=== PATIENT | female | born 1945 | race Caucasian/White ===

== ENCOUNTER 2020-06-19 13:15 | Outpatient (REF) | payer MEDICARE, OTHER, SELFPAY ==
--- NOTE | 2020-06-19 | MM_ITS ---
EXAMINATION: BONE DENSITOMETRY CLINICAL INDICATION: Age-related osteoporosis without current pathological fracture. COMPARISON: Previous BD dated 09/02/2009 and baseline BD dated 04/11/2007. TECHNIQUE: Using a InVisM DXA system (software version: 14.10) manufactured by [employer], dual-energy x-ray absorptiometry was performed of the lumbar spine and left hip. The images are of good technical quality. Summary results are attached. FINDINGS: AP SPINE L1-L4: Current: BMD 0.925 g/cm2, Z-score -1.1, T-score -2.1, osteopenia, 7.6% decrease from previous, 3.9% decrease from baseline (<5% change is not significant). Prior: BMD 1.001 g/cm2. Baseline: BMD 0.963 g/cm2. LEFT FEMUR, NECK: Current: BMD 0.923 g/cm2, Z-score 0.6, T-score -0.8, normal. Prior: BMD 0.962 g/cm2. Baseline: BMD 0.999 g/cm2. LEFT FEMUR, TOTAL: Current: BMD 0.965 g/cm2, Z-score 0.8, T-score -0.3, normal, 5.9% decrease from previous, 8.2% decrease from baseline (<5% change is not significant). Prior: BMD 1.026 g/cm2. Baseline: BMD 1.051 g/cm2. IDENTIFIED RISK FACTORS: Osteoporosis. Height loss. Secondary osteoporosis (early menopause). Hysterectomy. Bilateral oophorectomy. HISTORY OF FRACTURE: None listed. MEDICATIONS: Calcium supplement and/or multivitamin. Vitamin D. IMPRESSION: 1. DIAGNOSIS: Osteopenia based on the lowest T-score value of -2.1 in the lumbar spine applying World Health Organization criteria. 2. 10-YEAR FRACTURE RISK PREDICTION, FRAX: Major osteoporotic fracture (clinical spine, forearm, hip or shoulder) 4.6%. Hip fracture 0.5%. 3. Treatment Recommendations: NOF guidelines recommend consideration for treatment in postmenopausal women and men age 50 and older presenting with the following: -A hip or vertebral (clinical or morphometric) fracture. -T-score less than or equal to -2.5 at the femoral neck or spine after appropriate evaluation to exclude secondary causes. -Low bone mass at the hip or spine and a 10-year fracture probability by FRAX of greater than or equal to 3% for hip fracture or greater than or equal to 20% for major osteoporotic fracture based on the [place] adapted WHO algorithm. 4. Other Recommendations: All treatment decisions require clinical judgment and consideration of individual patient factors, including patient preferences, comorbidities, previous drug use, risk factors not captured in the FRAX model (e.g. frailty, falls, vitamin D deficiency, increased bone turnover, interval significant decline in bone density) and possible under or overestimation of fracture risk by FRAX. Additional medical evaluation for secondary cause of low bone mineral density may be appropriate. FUTURE SCAN RECOMMENDATION: People with diagnosed cases of osteoporosis or at high risk for fracture should have regular bone mineral density tests. For patients eligible for Medicare, routine testing is allowed once every 2 years. The testing frequency can be increased to one year for patients who have rapidly progressing disease, those who are receiving or discontinuing medical therapy to restore bone mass, or have additional risk factors.
== END 2020-06-19 13:16 | disposition home or self-care (01) ==
LOC: HO.MAMMO 13:15
PROVIDERS: PCP Internal Medicine; Visit Provider Internal Medicine
DX: Z13.820 Encounter for screening for osteoporosis (principal); M81.0 Age-related osteoporosis without current pathological fracture; Z78.0 Asymptomatic menopausal state; Z98.890 Other specified postprocedural states; Z79.899 Other long term (current) drug therapy
CPT/HCPCS: 77080

== ENCOUNTER 2020-06-20 14:25 | Outpatient (REF) | payer MEDICARE, OTHER, SELFPAY ==
--- NOTE | 2020-06-20 14:34 | US_ITS ---
EXAMINATION: US DIAGNOSTIC ULTRASOUND BREAST, LEFT CLINICAL INFORMATION: Pain and swelling for years. COMPARISON: Mammography of same day and studies dating back to March 12, 2014. TECHNIQUE: Ultrasound of the breast is performed with real-time pollard scale imaging and color Doppler. FINDINGS: Targeted left breast ultrasound did not demonstrate any abnormal cystic or solid mass. No region of abnormal distal sound shadowing appreciated. Results are discussed with the patient at time of visit. IMPRESSION: No mammographic or ultrasound findings to suggest malignancy. ASSESSMENT: BI-RADS 1: Negative RECOMMENDATION: Routine 12. Clinical follow-up for palpable abnormality/pain
--- NOTE | 2020-06-20 14:34 | MM_ITS ---
EXAMINATION: MM DIAGNOSTIC DIGITAL TOMOSYNTHESIS, BILATERAL US TARGETED DIAGNOSTIC BREAST, LEFT CLINICAL INFORMATION: Left breast thickening in the axilla with pain. Question left breast mass 2:00 position. The lifetime risk of breast cancer based on the Tyrer-Cuzick Model is 3.6%. COMPARISON: Mammography: 07/25/2019 and studies dating back to October 2010. TECHNIQUE: Digital breast tomosynthesis is performed in both the craniocaudal and mediolateral oblique views along with computer-aided detection (CAD). Synthesized 2D images are generated from the tomosynthesis. FINDINGS: There are scattered areas of fibroglandular density (ACR BI-RADS breast composition category B). There are no significant masses, abnormal calcifications, or other abnormalities. Targeted left breast ultrasound did not demonstrate any abnormal cystic or solid mass. No region of abnormal distal sound shadowing appreciated. Results are discussed with the patient at time of visit. IMPRESSION: No mammographic or ultrasound findings to suggest malignancy. ASSESSMENT: BI-RADS 1: Negative RECOMMENDATION: Routine 12. Clinical follow up for palpable abnormality/pain. This patient's information was entered into a reminder system with a target due date for their next mammogram.
[2020-06-20 18:12] LABS: MANUAL DIFF FLAG NO
[2020-06-20 18:22] LABS: Basophils Percent Auto 0.3 % (0-2); Eosinophils Percent Auto 0.4 % (0-4); Hematocrit 40.9 % (37-47); Imm Gran Abs Auto 0.01 X10*3/uL (0.00-0.03); Imm Gran Pct Auto 0.1 % (0.0-0.4); Lymphocytes Absolute Auto 4.4 X10*3/uL (1.2-4.9); Lymphocytes Percent Auto 48.2 % (20-40); Mean Corpuscular HGB Conc 34.2 g/dl (31.0-35.0); Mean Corpuscular Hemoglobin 31.3 pg (27.0-33.0); Mean Corpuscular Volume 91.5 fL (80-98); Mean Platelet Volume 11.1 fL (9.4-12.3); Monocytes Absolute Auto 0.8 X10*3/uL (0.1-1.2); Monocytes Percent Auto 8.4 % (2-11); Neutrophils Absolute Auto 3.8 X10*3/uL (2.0-8.3); Neutrophils Percent Auto 42.6 % (45-73); Platelet Count 308 X10*3/uL (160-400); Red Blood Count 4.47 X10*6/uL (4.20-5.50); Red Cell Distribution Width 13.2 % (11.0-16.0)
[2020-06-20 18:28] LABS: Estimated Average Glucose 120 mg/dL; Hemoglobin A1c % 5.8 %
[2020-06-20 18:39] LABS: Alanine Aminotransferase 17 U/L (0-31); Albumin Level 4.8 g/dL (3.5-5.0); Alkaline Phosphatase 85 U/L (39-117); Anion Gap 13 (12-20); Aspartate Amino Transferase 21 U/L (5-31); Bilirubin Total 0.9 mg/dL (0.0-1.0); Blood Urea Nitrogen 10 mg/dL (9-16); Calcium 9.9 mg/dL (8.4-10.2); Carbon Dioxide 28 mmol/L (22-29); Chloride 101 mmol/L (96-108); Cholesterol 148 mg/dL; Estimated Glomerular Filt Rate > 60; Glucose Random 88 mg/dL (60-115); HDL Cholesterol 62 mg/dL; LDL Cholesterol Calculated 57 mg/dl; Potassium 4.6 mmol/l (3.3-5.1); Sodium 137 mmol/L (135-145); Total Protein 7.7 g/dL (6.5-8.0); Triglycerides 145 mg/dL
[2020-06-20 19:00] LABS: Thyroid Stimulating Hormone 1.44 mIU/mL (0.32-4.0)
== END 2020-06-20 14:26 | disposition home or self-care (01) ==
LOC: HO.MAMMO 14:25
PROVIDERS: PCP Internal Medicine; Visit Provider Internal Medicine
DX: E66.01 Morbid (severe) obesity due to excess calories (principal); F33.9 Major depressive disorder, recurrent, unspecified; M79.673 Pain in unspecified foot; R73.01 Impaired fasting glucose; N63.21 Unspecified lump in the left breast, upper outer quadrant
CPT/HCPCS: 36415; 76642; 77062; 77066; 80053; 80061; 83036; 84443; 85025

== ENCOUNTER 2021-04-07 09:22 | Outpatient (REF) | payer MEDICARE, OTHER, SELFPAY ==
[2021-04-07 11:17] LABS: Alanine Aminotransferase 13 U/L (0-31); Albumin Level 4.8 g/dL (3.5-5.0); Alkaline Phosphatase 89 U/L (39-117); Anion Gap 16 (12-20); Aspartate Amino Transferase 19 U/L (5-31); Bilirubin Total 0.9 mg/dL (0.0-1.0); Blood Urea Nitrogen 9 mg/dL (9-16); Carbon Dioxide 25 mmol/L (22-29); Chloride 104 mmol/L (96-108); Cholesterol 238 mg/dL; Estimated Glomerular Filt Rate > 60; Glucose Random 116 mg/dL (60-115); HDL Cholesterol 60 mg/dL; LDL Cholesterol Calculated 152 mg/dl; Potassium 4.8 mmol/L (3.3-5.1); Sodium 140 mmol/L (135-145); Total Protein 7.7 g/dL (6.5-8.0); Triglycerides 134 mg/dL
== END 2021-04-07 09:23 | disposition home or self-care (01) ==
LOC: HO.LAB 09:22
PROVIDERS: PCP Internal Medicine; Visit Provider Internal Medicine
DX: E78.00 Pure hypercholesterolemia, unspecified (principal); K85.90 Acute pancreatitis without necrosis or infection, unspecified
CPT/HCPCS: 36415; 80053; 80061

== ENCOUNTER → 2021-05-05 09:54 | Outpatient (BNVA) | payer MEDICARE, OTHER, SELFPAY | PROVIDERS: PCP Internal Medicine; Referring Provider Internal Medicine; Visit Provider Surgery Vascular Surgery | DX: I83.11 Varicose veins of right lower extremity with inflammation (principal) | CPT/HCPCS: 99202 ==

== ENCOUNTER → 2021-05-06 20:09 | Outpatient (REF) | payer MEDICARE, OTHER, SELFPAY | LOC: HO.SL 20:09 | PROVIDERS: Visit Provider Internal Medicine | DX: G47.33 Obstructive sleep apnea (adult) (pediatric) (principal); G47.51 Confusional arousals | CPT/HCPCS: 95810 ==

== ENCOUNTER 2021-05-19 10:22 | Outpatient (REF) | payer MEDICARE, OTHER, SELFPAY ==
--- NOTE | ~2021-05-19 | US_ITS ---
EXAMINATION: US LOWER EXTREMITY VENOUS ULTRASOUND (REFLUX EXAM), BILATERAL CLINICAL INDICATION: Lower extremity varicose veins. COMPARISON: 07/05/2018 TECHNIQUE: Color-flow triplex imaging and compression Doppler was performed to evaluate both the deep and the superficial systems bilaterally. To evaluate the superficial system, the examination was performed in the upright position. Color-flow Doppler ultrasound and compression ultrasound were utilized. In addition, maneuvers were utilized to demonstrate reflux. FINDINGS: 1. DEEP VENOUS ULTRASOUND OF THE RIGHT LOWER EXTREMITY: Common Femoral Vein: Compressible, normal respiratory variation and augmented flow. Femoral Vein: Compressible, normal color-flow and augmentation. Popliteal Vein: Compressible, normal augmentation. Deep Reflux: There is 0.8 seconds of reflux within the common femoral vein. There is no evidence of a Richardson's cyst. 2. SUPERFICIAL ULTRASOUND WITH DOPPLER OF RIGHT LOWER EXTREMITY: GREAT SAPHENOUS VEIN: The right great saphenous vein ranges in size from 0.2 cm to 0.8 cm at the junction. There is segmental reflux below the level of the knee measuring up to 3.3 seconds. DUPLICATED GREAT SAPHENOUS VEIN: Medial, 0.4 cm at the junction, no reflux. SMALL SAPHENOUS VEIN: Saphenopopliteal junction: 0.3 cm; No evidence of reflux. Mid calf: 0.2 cm; No evidence of reflux. Distal calf: 0.2 cm; No evidence of reflux. VEIN OF GIACOMINI: None Imaged. PERFORATORS: Proximal calf, 0.1 cm, no reflux. VARICOSITIES: No varicosities greater than 3 mm identified. 3. DEEP VENOUS ULTRASOUND OF THE LEFT LOWER EXTREMITY: Common Femoral Vein: Compressible, normal respiratory variation and augmented flow. Femoral Vein: Compressible, normal color-flow and augmentation. Popliteal Vein: Compressible, normal augmentation. Deep Reflux: There is no evidence of reflux in the deep system in either the common femoral vein or the popliteal vein. There is no evidence of a Richardson's cyst. 4. SUPERFICIAL ULTRASOUND WITH DOPPLER OF LEFT LOWER EXTREMITY: GREAT SAPHENOUS VEIN: The great saphenous vein ranges in size from 0.2 cm to 0.8 cm at the junction. There is no evidence of reflux within the left great saphenous vein. DUPLICATED GREAT SAPHENOUS VEIN: Lateral, 0.3 cm, no reflux. SMALL SAPHENOUS VEIN: Saphenopopliteal junction: 0.2 cm; No evidence of reflux. Mid calf: 0.2 cm; No evidence of reflux. VEIN OF GIACOMINI: None Imaged. PERFORATORS: None Imaged. VARICOSITIES: No varicosities greater than 3 cm are identified. US/US venous duplex LE BI IMPRESSION: 1. Segmental reflux within the right great saphenous vein below the knee. 2. No evidence of left great saphenous venous insufficiency. 3. Deep venous insufficiency involving the right common femoral vein. 4. No evidence of DVT.
== END 2021-05-19 10:23 | disposition home or self-care (01) ==
LOC: HO.US 10:22
PROVIDERS: PCP Internal Medicine; Visit Provider Surgery Vascular Surgery
DX: I83.893 Varicose veins of bilateral lower extremities with other complications (principal)
CPT/HCPCS: 93970

== ENCOUNTER → 2021-06-04 13:48 | Outpatient (BNVA) | payer MEDICARE, OTHER, SELFPAY | PROVIDERS: PCP Internal Medicine; Visit Provider Surgery Vascular Surgery | DX: I83.11 Varicose veins of right lower extremity with inflammation (principal) | CPT/HCPCS: 99212 ==

== ENCOUNTER 2021-06-04 14:13 | Outpatient (REF) | payer MEDICARE, OTHER, SELFPAY | END 2021-06-04 14:14 | disposition home or self-care (01) | LOC: HO.MAMMO 14:13 | PROVIDERS: Visit Provider Internal Medicine | DX: Z13.89 Encounter for screening for other disorder (principal) ==

== ENCOUNTER 2021-06-11 09:22 | Outpatient (REF) | payer MEDICARE, OTHER, SELFPAY ==
[2021-06-11 09:44] LABS: MANUAL DIFF FLAG NO
[2021-06-11 10:31] LABS: Basophils Percent Auto 0.4 % (0-2); Eosinophils Percent Auto 0.5 % (0-4); Hematocrit 39.3 % (37-47); Hemoglobin 13.5 g/dl (12.0-16.0); Imm Gran Abs Auto 0.02 X10*3/uL (0.00-0.03); Imm Gran Pct Auto 0.3 % (0.0-0.4); Lymphocytes Absolute Auto 2.6 X10*3/uL (1.2-4.9); Lymphocytes Percent Auto 33.8 % (20-40); Mean Corpuscular HGB Conc 34.4 g/dl (31.0-35.0); Mean Corpuscular Hemoglobin 31.4 pg (27.0-33.0); Mean Corpuscular Volume 91.4 fL (80-98); Mean Platelet Volume 10.2 fL (9.4-12.3); Monocytes Absolute Auto 0.6 X10*3/uL (0.1-1.2); Monocytes Percent Auto 8.2 % (2-11); Neutrophils Absolute Auto 4.4 X10*3/uL (2.0-8.3); Neutrophils Percent Auto 56.8 % (45-73); Platelet Count 313 X10*3/uL (160-400); Red Cell Distribution Width 13.1 % (11.0-16.0); White Blood Count 7.8 X10*3/uL (4.8-10.8)
[2021-06-11 10:57] LABS: Alanine Aminotransferase 16 U/L (0-31); Albumin Level 4.9 g/dL (3.5-5.0); Alkaline Phosphatase 80 U/L (39-117); Anion Gap 13 (12-20); Aspartate Amino Transferase 19 U/L (5-31); Blood Urea Nitrogen 13 mg/dL (9-16); Calcium 10.3 mg/dL (8.4-10.2); Carbon Dioxide 27 mmol/L (22-29); Chloride 104 mmol/L (96-108); Cholesterol 197 mg/dL; Estimated Glomerular Filt Rate > 60; Glucose Fasting 107 mg/dL (60-99); HDL Cholesterol 68 mg/dL; LDL Cholesterol Calculated 108 mg/dl; Potassium 4.5 mmol/L (3.3-5.1); Sodium 139 mmol/L (135-145); Total Protein 7.8 g/dL (6.5-8.0); Triglycerides 108 mg/dL
[2021-06-11 11:19] LABS: Thyroid Stimulating Hormone 1.97 uIU/mL (0.32-4.0)
== END 2021-06-11 09:23 | disposition home or self-care (01) ==
LOC: HO.LAB 09:22
PROVIDERS: PCP Internal Medicine; Visit Provider Internal Medicine
DX: E78.00 Pure hypercholesterolemia, unspecified (principal); F41.0 Panic disorder [episodic paroxysmal anxiety]; G47.33 Obstructive sleep apnea (adult) (pediatric); I10 Essential (primary) hypertension
CPT/HCPCS: 36415; 80053; 80061; 84443; 85025

== ENCOUNTER 2021-07-21 14:23 | Outpatient (REF) | payer MEDICARE, OTHER, SELFPAY ==
--- NOTE | ~2021-07-21 | MM_ITS ---
EXAMINATION: MM SCREENING DIGITAL BREAST TOMOSYNTHESIS, BILATERAL CLINICAL INFORMATION: Screening. Asymptomatic. The lifetime risk of breast cancer based on the Tyrer-Cuzick Model is 4%. COMPARISON: Mammography: 06/20/2020, 07/25/2019, 07/13/2018 TECHNIQUE: Digital breast tomosynthesis is performed in both the craniocaudal and mediolateral oblique views along with computer-aided detection (CAD). Synthesized 2D images are generated from the tomosynthesis. FINDINGS: There are scattered areas of fibroglandular density (ACR BI-RADS breast composition Category b). Breast tissue composition is similar to prior studies. There is no developing density. No significant mass or architectural abnormality. The axilla and skin contours are unremarkable. There are scattered bilateral round and rim calcifications. No significant changes. MM/MM tomosynthesis screening BI IMPRESSION: No mammographic evidence of malignancy. ASSESSMENT: BI-RADS 1: Negative RECOMMENDATION: Routine annual mammography screening. This patient's information was entered into a reminder system with a target due date for their next mammogram.
== END 2021-07-21 14:24 | disposition home or self-care (01) ==
LOC: HO.MAMMO 14:23
PROVIDERS: Visit Provider Internal Medicine
DX: Z12.31 Encounter for screening mammogram for malignant neoplasm of breast (principal)
CPT/HCPCS: 77063; 77067

== ENCOUNTER 2021-11-06 10:37 | Outpatient (REF) | payer MEDICARE, OTHER, SELFPAY | END 2021-11-06 10:38 | disposition home or self-care (01) | LOC: HO.HOSX 10:37 | PROVIDERS: Visit Provider Physician Assistant | DX: Z13.89 Encounter for screening for other disorder (principal) ==

== ENCOUNTER 2022-07-26 09:03 | Outpatient (REF) | payer MEDICARE, OTHER, SELFPAY ==
[2022-07-26 09:24] LABS: MANUAL DIFF FLAG NO
[2022-07-26 09:43] LABS: Basophils Percent Auto 0.4 % (0-2); Eosinophils Absolute Auto 0.1 X10*3/uL (0.0-0.4); Hematocrit 39.5 % (37.0-47.0); Hemoglobin 13.3 g/dl (12.0-16.0); Imm Gran Abs Auto 0.01 X10*3/uL (0.00-0.03); Imm Gran Pct Auto 0.1 % (0.0-0.4); Lymphocytes Percent Auto 44.4 % (20-40); Mean Corpuscular HGB Conc 33.7 g/dl (31.0-35.0); Mean Corpuscular Hemoglobin 30.9 pg (27.0-33.0); Mean Corpuscular Volume 91.9 fL (80.0-98.0); Monocytes Absolute Auto 0.7 X10*3/uL (0.1-1.2); Neutrophils Absolute Auto 2.9 x10*3/uL (2.0-8.3); Neutrophils Percent Auto 43.1 % (45-73); Platelet Count 311 X10*3/uL (160-400); Red Cell Distribution Width 13.5 % (11.0-16.0); White Blood Count 6.7 X10*3/uL (4.8-10.8)
[2022-07-26 09:54] LABS: Estimated Average Glucose 120 mg/dL; Hemoglobin A1c % 5.8 %
[2022-07-26 10:11] LABS: Alanine Aminotransferase 22 U/L (0-31); Albumin Level 4.8 g/dL (3.5-5.0); Alkaline Phosphatase 75 U/L (39-117); Anion Gap 14 (12-20); Aspartate Amino Transferase 21 U/L (5-31); Blood Urea Nitrogen 14 mg/dL (9-16); Carbon Dioxide 29 mmol/L (22-29); Chloride 102 mmol/L (96-108); Cholesterol 187 mg/dL; Estimated Glomerular Filt Rate > 60; Glucose Random 115 mg/dL (60-115); HDL Cholesterol 72 mg/dL; LDL Cholesterol Calculated 96 mg/dl; Sodium 140 mmol/L (135-145); Total Protein 7.7 g/dL (6.5-8.0); Triglycerides 99 mg/dL
[2022-07-26 10:33] LABS: Thyroid Stimulating Hormone 2.52 uIU/mL (0.32-4.0)
== END 2022-07-26 09:04 | disposition home or self-care (01) ==
LOC: HO.LAB 09:03
PROVIDERS: PCP Internal Medicine; Visit Provider Internal Medicine
DX: I10 Essential (primary) hypertension (principal); M51.16 Intervertebral disc disorders with radiculopathy, lumbar region; R73.01 Impaired fasting glucose
CPT/HCPCS: 36415; 80053; 80061; 83036; 84443; 85025

== ENCOUNTER 2022-07-30 08:48 | Outpatient (REF) | payer MEDICARE, OTHER, SELFPAY ==
--- NOTE | ~2022-07-30 | MM_ITS ---
EXAMINATION: MM SCREENING DIGITAL BREAST TOMOSYNTHESIS, BILATERAL CLINICAL INFORMATION: Screening. Asymptomatic. The lifetime risk of breast cancer based on the Tyrer-Cuzick Model is 4%. COMPARISON: Mammography: 07/21/2021, 06/20/2020, 07/25/2019, 07/13/2018, 07/08/2017, 05/31/2016 TECHNIQUE: Digital breast tomosynthesis is performed in both the craniocaudal and mediolateral oblique views along with computer-aided detection (CAD). Synthesized 2D images are generated from the tomosynthesis. FINDINGS: There are scattered areas of fibroglandular density (ACR BI-RADS breast composition Category b). Parenchymal pattern is similar to prior exams. Left breast has chronic parenchymal asymmetry central 12:00 position similar to multiple prior exams. There is also small stable chronic asymmetric density mid outer right breast on CC view similar to multiple prior studies. Neither breast shows developing density or interval mass or architectural abnormality. No abnormal calcifications. The axilla and skin contours are unremarkable. MM/MM tomosynthesis screening BI IMPRESSION: No significant changes from prior exams. ASSESSMENT: BI-RADS 2: Benign RECOMMENDATION: Routine annual mammography screening. This patient's information was entered into a reminder system with a target due date for their next mammogram.
== END 2022-07-30 08:49 | disposition home or self-care (01) ==
LOC: HO.MAMMO 08:48
PROVIDERS: PCP Internal Medicine; Visit Provider Internal Medicine
DX: Z12.31 Encounter for screening mammogram for malignant neoplasm of breast (principal)
CPT/HCPCS: 77063; 77067

== ENCOUNTER 2022-10-11 14:13 | Outpatient (REF) | payer MEDICARE, OTHER, SELFPAY ==
[2022-10-11 15:21] LABS: Estimated Average Glucose 120 mg/dL; Hemoglobin A1c % 5.8 %
[2022-10-11 15:36] LABS: Alanine Aminotransferase 16 U/L (0-31); Albumin Level 4.9 g/dL (3.5-5.0); Alkaline Phosphatase 77 U/L (39-117); Anion Gap 15 (12-20); Aspartate Amino Transferase 19 U/L (5-31); Bilirubin Total 0.9 mg/dL (0.0-1.0); Blood Urea Nitrogen 15 mg/dL (9-16); Calcium 10.2 mg/dL (8.4-10.2); Carbon Dioxide 27 mmol/L (22-29); Chloride 101 mmol/L (96-108); Estimated Glomerular Filt Rate > 60; Glucose Random 92 mg/dL (60-115); Potassium 5.2 mmol/L (3.3-5.1); Sodium 138 mmol/L (135-145); Total Protein 7.7 g/dL (6.5-8.0)
== END 2022-10-11 14:14 | disposition home or self-care (01) ==
LOC: HO.LAB 14:13
PROVIDERS: PCP Internal Medicine; Visit Provider Internal Medicine
DX: Z00.00 Encounter for general adult medical examination without abnormal findings (principal); I10 Essential (primary) hypertension; E78.00 Pure hypercholesterolemia, unspecified; F32.9 Major depressive disorder, single episode, unspecified
CPT/HCPCS: 36415; 80053; 83036

== ENCOUNTER 2023-04-12 12:59 | Outpatient (AMB) | payer MEDICARE, SELFPAY ==
[2023-04-12 13:15] VITALS: BP 134/60; PULSE 62; BMI 36.8
--- NOTE | 2023-04-12 13:15 | MHC.OFFVIS ---
Intake Vital Signs 04/12/23 13:15 Height 5 ft Weight 188 lb 4.396 oz BMI 36.8 BP 134/60 Blood Pressure Location Lt brachial Position Sitting Pulse 62 Intake Visit Reasons: Colonoscopy Screening Intake Note: Lesley presents in office as a new.patient for a colonoscopy screeing PT CC: pt reports having constipation pt denies any other GI Issues Software Lead Required: No Accompanied by: Self / Same As Patient Allergies ibuprofen Allergy (Unknown, Verified 04/12/23 13:16) nausea and vomiting metformin Allergy (Unknown, Verified 04/12/23 13:16) Unknown oxycodone [From PERCOCET] Adverse Reaction (Unknown, Verified 04/12/23 13:16) HEAD FEELS DIZZY FULL ZAC inhibitors Allergy (Unknown, Uncoded 04/12/23 13:16) Unknown Codeine Phosphate Allergy (Unknown, Uncoded 04/12/23 13:16) Unknown HPI Colonoscopy Screening HPI Details 77 year old? female with past medical history of hypertension, hyperlipidemia, obesity, sleep apnea is here today for pre colonoscopy screening.? Patient was sent to us by her PCP.? ?Patient reports that her last colonoscopy was over 5 years ago in [place]. Patient denies any gastrointestinal symptoms in the past or at present.? However patient reports to have long history of constipation. Patient is taking medications, however she does not remember what the name of the medications is to have her move her bowels. Patient denies melena, hematochezia, unintentional weight loss or loss stools. Denies any personal or family history of gastrointestinal disease, colon polyps, or cancer.? Denies history of difficulty with sedation or anesthesia in the past.? Negative for history of sleep apnea.? Denies any history of cardiac, renal, pulmonary, or hepatic disease.?? No history of infectious? diseases like hepatitis A, B, C, HIV or tuberculosis.? Patient takes low-dose aspirin every day. [facility] Medical History Arthritis Depression Diabetes GERD (gastroesophageal reflux disease) High cholesterol HTN (hypertension) Loss of consciousness Morbid obesity Sleep apnea Surgical History History of facelift History of hysterectomy History of knee replacement Social History Advance Directives Date on File: 06/19/20 Review of Systems Const Denies weight gain and Denies weight loss ENT Reports no additional complaints, Denies dysphagia and Denies odynophagia Card Reports no additional complaints Resp Reports no additional complaints GI Denies abdominal pain, Denies belching, Denies melena, Denies bloating, Denies change in bowel habits, Reports constipation, Denies dysphagia, Denies excessive flatus, Denies dyspepsia, Denies heartburn, Denies diarrhea, Denies loose stools, Denies nausea, Denies odynophagia and Denies vomiting Reports no additional complaints Musc Reports no additional complaints Neuro Reports no additional complaints Psych Reports no additional complaints Endo Reports no additional complaints Physical Exam Vital Signs: Last Vital Signs Pulse 62 04/12/23 13:15 BP 134/60 04/12/23 13:15 BMI result Body Mass Index 36.8 Const General: healthy appearing, no acute distress and well developed Nutritional Appearance: obese Orientation/consciousness: patient oriented x3 HEENT Head: Yes normal to inspection, Yes normocephalic and Yes atraumatic Face and sinus: Yes normal facial exam Mouth: Normal oral and palatal mucosa present Throat: Yes posterior oropharynx normal, Yes tonsils normal and Yes uvula midline Eyes General: appearance normal, both eyes and all related structures Neck Neck: Yes normal visual inspection, Yes full ROM and Yes trachea midline Thyroid: Thyroid normal Resp Effort & Inspection: normal respiratory effort, able to speak in complete sentences, no tracheal deviation and symmetric chest movement Auscultation: clear to auscultation bilaterally Cardio Rate: regular rate Heart sounds: S1 normal heart sound present and S2 normal heart sound present GI Inspection: Yes normal to inspection, No distended and Yes obesity Palpation (GI): Soft to palpation, not firm, nontender and No hepatosplenomegaly present Auscultation: normal bowel sounds General: Yes no CVA tenderness Back/Spine/Pelvis Back: no CVA tenderness Skin General skin exam: elasticity normal, turgor normal and dry skin Neuro General: patient oriented x3 Psych Appearance: grossly normal Mental Status: mental status grossly normal Speech and movement: Normal speech and movement present Affect: normal affect Assessment & Plan Assessment & Plan (1) Screen for colon cancer: Code(s): Z12.11 - Encounter for screening for malignant neoplasm of colon Plan: Please book procedure for patient. Patient will return in 3 weeks to go over colonoscopy and what to expect before during and after the procedure. Patient has severe constipation we will address that before. Patient denies any melena, hematochezia, unintentional weight loss or ribbon like stools. Patient denies any dyspepsia, dysphagia or odynophagia. (2) Chronic idiopathic constipation: Code(s): K59.04 - Chronic idiopathic constipation Plan: Patient was encouraged to start taking Senokot every evening 2 tablets. She will call our office if this not going to be effective. Patient was also encouraged to increase fluid intake and activity to promote better bowel motility. I will see her in 3 weeks, sooner on as needed basis. Patient is agreeable to this plan and verbalizes understanding of instructions. She was given the opportunity to ask questions and all questions answered. Thank you for allowing me to participate in her care Medications: New sennosides (Natural Senna Laxative) 17.2 mg (2 x 8.6 mg) PO BEDTIME 60 tabs 3RF constipation K59.00 - Constipation, unspecified Coding Level of Care Code New Pt Level 3 (91582) Diagnoses Screen for colon cancer Z12.11 Chronic idiopathic constipation K59.04 Time Spent (min) 40 Comment 30 minutes spent with patient and additional 10 minutes spent reviewing her records
== END 2023-04-12 13:49 | disposition home or self-care (01) ==
PROVIDERS: PCP Internal Medicine; Visit Provider Nurse Practitioner Family
DX: K59.04 Chronic idiopathic constipation (principal); Z12.11 Encounter for screening for malignant neoplasm of colon
CPT/HCPCS: 99203

== ENCOUNTER → 2023-04-12 12:59 | Outpatient (BNVA) | payer MEDICARE, OTHER, SELFPAY | PROVIDERS: PCP Internal Medicine; Visit Provider Nurse Practitioner Family | DX: Z12.11 Encounter for screening for malignant neoplasm of colon (principal); K59.04 Chronic idiopathic constipation | CPT/HCPCS: 99202 ==

== ENCOUNTER 2023-07-04 13:18 | Day surgery (SDC) | payer MEDICARE, OTHER, SELFPAY ==
[2023-06-30 16:54] VITALS: BMI 36.7
[2023-07-04 13:59] VITALS: BP 130/48; PULSE 68; RESP 18; TEMP 36.1; O2SAT 97
--- NOTE | 2023-07-04 14:01 | HO.ANESPROP2 ---
[facility] Active Problems Active Problems: All Active Problems (Updated 05/05/21 @ 12:25 by Jonathan García MD) Varicose veins of right lower extremity with inflammation (Acute) Past Medical History Medical History Arthritis Depression Diabetes GERD (gastroesophageal reflux disease) High cholesterol HTN (hypertension) Loss of consciousness Morbid obesity Sleep apnea Family History Family history of problems with anesthesia: No Surgical History Surgical History History of facelift History of hysterectomy History of knee replacement History of Problems with Anesthesia: No Social History Social History Advance Directives: No Advance Directives Information Provided: Yes Advance Directives Date on File: 06/19/20 Meds Allergies Allergy/AdvReac Type Severity Reaction Status Date / Time ibuprofen Allergy Unknown nausea and Verified 04/12/23 13:16 vomiting metformin Allergy Unknown Unknown Verified 04/12/23 13:16 oxycodone [From PERCOCET] AdvReac Unknown HEAD FEELS Verified 04/12/23 13:16 DIZZY FULL ZAC inhibitors Allergy Unknown Unknown Uncoded 04/12/23 13:16 Codeine Phosphate Allergy Unknown Unknown Uncoded 04/12/23 13:16 Home Medications Medication Instructions Recorded Confirmed Last Taken Type atorvastatin 20 mg tablet 20 mg PO DAILY 05/05/21 Unknown History clonazepam 0.5 mg tablet 0.5 mg PO BID PRN 05/05/21 Unknown History amlodipine 5 mg tablet 5 mg PO DAILY 04/12/23 07/04/23 History diclofenac sodium 75 mg 75 mg PO BID 04/12/23 Unknown History tablet,delayed release rosuvastatin 10 mg tablet 10 mg PO BEDTIME 04/12/23 Unknown History sertraline 100 mg tablet 100 mg PO BID 04/12/23 07/04/23 History telmisartan 80 1 tab PO DAILY 04/12/23 07/04/23 History mg-hydrochlorothiazide 25 mg tablet Exam Exam Date and Time: July 04, 2023 1401 Height,Weight and Vital Signs: Height 5 ft Weight 85.275 kg Airway Mallampati Class: II (implants all top , bottom left) TM Dist: >3cm Neck ROM: Full Heart: rrr Lungs: cta Assessment and Plan Assessment Anesthesia Assessment: Anesthesia Plan Discussed and Chart Reviewed Final Anesthetic Review Family History of Problems with Anesthesia: No History of Problems with Anesthesia: No NPO: Yes ASA Class: III Final Preanesthetic Review: No Changes in Pt Med Stat, Meds/Allgs Chart Reviewed and Consent Obtained/Reviewed Patient Risk: Intermediate Procedure Risk: Intermediate Anesthetic Plan Anesthetic Plan: MAC: Disposition: Standard PACU
[2023-07-04] MEDS: Lactated Ringers 1,000 ML 100 ML IVCONT (14:12)
--- NOTE | 2023-07-04 15:32 | MHC.SHP ---
Pre-Procedural Eval Section A Date of Service: 07/04/23 The patient is an INPATIENT: No The History & Physical has been completed within 30 days and I have reviewed it.: No Section B Chief Complaint: colon cancer screening Relevant Family History (Specify if Yes): No Relevant Social History: None Present Medications: see Short Stay Collaborative assessment Medical History: Significant History (Arthritis Depression Diabetes GERD (gastroesophageal reflux disease) High cholesterol HTN (hypertension) Loss of consciousness Morbid obesity Sleep apnea) History of Previous Operations: Relevant previous surgery/procedure and date(s) (History of facelift History of hysterectomy History of knee replacement) Allergies: Allergies Allergy/AdvReac Type Severity Reaction Status Date / Time ibuprofen Allergy Unknown nausea and Verified 04/12/23 13:16 vomiting metformin Allergy Unknown Unknown Verified 04/12/23 13:16 oxycodone [From PERCOCET] AdvReac Unknown HEAD FEELS Verified 04/12/23 13:16 DIZZY FULL ZAC inhibitors Allergy Unknown Unknown Uncoded 04/12/23 13:16 Codeine Phosphate Allergy Unknown Unknown Uncoded 04/12/23 13:16 Review of Systems Sugical H&P ROS: Negative: Constitution, Cardiovascular, Respiratory and Gastrointestinal Exam Surgical H&P Exam: Normal: Heart, Normal: Lungs, Normal: Extremities and Normal: Abdomen Plan Diagnosis/Plan: Unchanged I have reviewed the history and physical and performed a pertinent physical examination on my patient. No changes have occurred unless specified. Time Spent With Patient Time: Total time managing care of this patient today ____ minutes.
--- NOTE | 2023-07-04 15:33 | W.PM.OPN ---
Operative Note Operative Note Date of Service: 07/04/23 Narrative: COLONOSCOPY TILL CECUM WITH SNARE POLYPECTOMY Pre-op diagnosis: Screening Post-op diagnosis:?Colon polyp, diverticulosis Endoscopist:? William Mora MD Anesthesia:?MAC Consent: Indications for the procedure and potential complications of bleeding, perforation, reaction to medications and missed diagnosis were discussed with the patient and informed consent was obtained. Instrument: Olympus PCF H 190 L variable stiffness pediatric colonoscope Monitoring: Vital signs and clinical assessment, intermittent blood pressure monitoring, continuous EKG monitoring, Pulse oximetry and Carbon Dioxide monitoring were done throughout the procedure. Please see anesthesia flowsheet. Colon withdrawl time was 14 minutes. Procedure: The patient was placed in the left lateral decubitis position and pre-procedure medications were administered. After a digital rectal examination of the ano-rectum, the video colonoscope was inserted into the rectum and advanced through the colon to the cecum. The colonoscope was slowly withdrawn in a retrograde panoramic fashion and the colon mucosa was carefully examined including a retroflexed view of the rectum. Findings and interventions are described below. Procedure Difficulty: Without difficulty Findings: Terminal Ileum: Not evaluated Cecum: Normal Ascending Colon: Normal Transverse Colon: Normal Descending Colon: Normal Sigmoid Colon: A 10-12 mm sessile polyp - removed by a hot snare. Moderate diverticulosis Rectum: Normal Ano-rectum: Normal Colon preparation: Good Impression and Post Procedure Diagnosis: Colonoscopy Findings: One medium sized polyp removed Moderate diverticulosis seen in the sigmoid colon Plan: I will send a letter with pathology results Repeat Colonoscopy interval based on path results - in 3 years if polyps are adenomatous and 10 years if polyps are hyperplastic. Colon polyps and diverticulosis handouts were given in the discharge are
[2023-07-04 16:21] VITALS: BP 95/52; PULSE 66; RESP 13; TEMP 36.4; O2SAT 95
[2023-07-04 16:37] VITALS: BP 117/56; PULSE 63; RESP 13; O2SAT 97
[2023-07-04 16:52] VITALS: BP 135/73; PULSE 64; RESP 18; TEMP 36.3; O2SAT 98
== END 2023-07-04 17:03 | disposition home or self-care (01) ==
PROVIDERS: PCP Internal Medicine; Visit Provider Internal Medicine Gastroenterology
PROC: 0DJD8ZZ Inspection of Lower Intestinal Tract, Via Natural or Artificial Opening Endoscopic (ICD-10-PCS; CPT 45378; principal; 2023-07-04 14:40)
DX: Z12.11 Encounter for screening for malignant neoplasm of colon (principal); K63.5 Polyp of colon; K57.30 Diverticulosis of large intestine without perforation or abscess without bleeding; K59.04 Chronic idiopathic constipation; E11.9 Type 2 diabetes mellitus without complications; I10 Essential (primary) hypertension; E78.5 Hyperlipidemia, unspecified; G47.30 Sleep apnea, unspecified; K21.9 Gastro-esophageal reflux disease without esophagitis; E66.01 Morbid (severe) obesity due to excess calories; Z68.36 Body mass index [BMI] 36.0-36.9, adult; Z79.899 Other long term (current) drug therapy
CPT/HCPCS: 45385; 88305; J2250

== ENCOUNTER → 2023-07-04 13:18 | Outpatient (BNV) | payer MEDICARE, SELFPAY | PROVIDERS: PCP Internal Medicine; Visit Provider Internal Medicine Gastroenterology | DX: Z12.11 Encounter for screening for malignant neoplasm of colon (principal); K57.30 Diverticulosis of large intestine without perforation or abscess without bleeding; D12.5 Benign neoplasm of sigmoid colon | CPT/HCPCS: 45385 ==

== ENCOUNTER 2023-07-26 10:48 | Outpatient (AMB) | payer MEDICARE, SELFPAY ==
--- NOTE | 2023-07-26 10:50 | MHC.OFFVIS ---
Intake Vital Signs 07/26/23 10:58 Height 5 ft Weight 191 lb 6 oz BMI 37.4 BP 163/71 H Blood Pressure Location Lt brachial Position Standing Pulse 88 Intake Visit Reasons: lipoma of the ankles Intake Note: Patient is seen in office for evaluation and treatment of lipoma of the ankles. Patient c/o: feel lumps onn both side of the ankles for years, legs get swollen, back aches, painful at all times specially when walking Maintainability Engineer Required: Yes Maintainability Engineer Language: Valve Assembler Name: Lashay BARRETT Information Interpreted: non-clinical & clinical Accompanied by: Self / Same As Patient Allergies ibuprofen Allergy (Unknown, Verified 07/26/23 10:57) nausea and vomiting metformin Allergy (Unknown, Verified 07/26/23 10:57) Unknown oxycodone [From PERCOCET] Adverse Reaction (Unknown, Verified 07/26/23 10:57) HEAD FEELS DIZZY FULL ZAC inhibitors Allergy (Unknown, Uncoded 07/26/23 10:57) Unknown Codeine Phosphate Allergy (Unknown, Uncoded 07/26/23 10:57) Unknown Medication List - Last Reconciled 07/26/23 by Xander Acuna MD amlodipine 5 mg PO DAILY atorvastatin 20 mg PO DAILY clonazepam 0.5 mg PO BID PRN diclofenac sodium 75 mg PO BID rosuvastatin 10 mg PO BEDTIME sennosides (Natural Senna Laxative) 17.2 mg (2 x 8.6 mg) PO BEDTIME sertraline 100 mg PO BID telmisartan-hydrochlorothiazid 80-25 mg 1 tab PO DAILY HPI HPI Comments History of Present Illness Details 77-year-old female patient presenting for evaluation of a left foot lipomas. These have been present for several years and have gradually increased in size. She reports pain mainly in the heel and slightly above the posterior midline. She also has pain in the great toe with occasional spasm. She is requesting excision of a lipoma as because of the pain she is experiencing. She denies any redness or discharge, fever or chills. She denies a previous history of foot surgery. She has never been evaluated by Podiatry. [facility] Medical History Diabetes Morbid obesity High cholesterol Loss of consciousness Depression Arthritis GERD (gastroesophageal reflux disease) Sleep apnea HTN (hypertension) Surgical History History of facelift History of knee replacement History of hysterectomy Patient Tobacco Use Status: Former Tobacco user Advance Directives Date on File: 06/19/20 Review of Systems Const All systems reviewed & are unremarkable except as noted in HPI and below Physical Exam Vital Signs: Last Vital Signs Pulse 88 07/26/23 10:58 BP 163/71 H 07/26/23 10:58 BMI result Body Mass Index 37.4 Const General: cooperative and no acute distress Nutritional Appearance: obese Orientation/consciousness: patient oriented x3 Limitations: no limitations HEENT Head: Yes normocephalic and Yes atraumatic Ears: hearing grossly normal bilaterally Resp Effort & Inspection: normal respiratory effort, no audible wheezes, no cough and no respiratory distress Cardio Jugular venous distension: no JVD GI Inspection: Yes normal to inspection Skin Other: Warm, dry, no rash Neuro General: patient oriented x3 Extrem Other: Left foot with bilateral soft tissue masses which do appear to be fatty in nature, possibly lipoma although is also present to a lesser degree on the right side. Patient points to an area heel and Achilles tendon region as the site of pain which cannot be easily explained by the lipoma. She is also experiencing pain in the great toe which again is unrelated to the lipoma. General: Yes no clubbing, cyanosis or edema Ankle/foot/toe images: 1. Lipoma medial surface left foot 2. Lipoma lateral surface left foot Assessment & Plan Assessment & Plan (1) Lipoma of both lower extremities: Code(s): D17.23 - Benign lipomatous neoplasm of skin and subcutaneous tissue of right leg; D17.24 - Benign lipomatous neoplasm of skin and subcutaneous tissue of left leg Plan 77-year-old female patient presenting with complaints of left foot pain with bilateral soft tissue changes suggestive of a lipoma. I cannot easily explain the patient's symptoms due to this soft tissue mass and suggest the patient undergo a podiatry consultation. I do not feel removing the possible lipoma will improve her left foot symptoms. She will follow-up with Podiatry and should return as needed. Coding Level of Care Code New Pt Level 4 (39591) Diagnoses Lipoma of both lower extremities D17.23; D17.24
[2023-07-26 10:58] VITALS: BP 163/71; PULSE 88; BMI 37.4
== END 2023-07-26 12:02 | disposition home or self-care (01) ==
PROVIDERS: PCP Internal Medicine; Referring Provider Internal Medicine; Visit Provider Surgery
DX: D17.23 Benign lipomatous neoplasm of skin and subcutaneous tissue of right leg (principal); D17.24 Benign lipomatous neoplasm of skin and subcutaneous tissue of left leg
CPT/HCPCS: 99204

== ENCOUNTER → 2023-07-26 10:48 | Outpatient (BNVA) | payer MEDICARE, OTHER, SELFPAY | PROVIDERS: PCP Internal Medicine; Referring Provider Internal Medicine; Visit Provider Surgery | DX: D17.23 Benign lipomatous neoplasm of skin and subcutaneous tissue of right leg (principal); D17.24 Benign lipomatous neoplasm of skin and subcutaneous tissue of left leg | CPT/HCPCS: 99202 ==

== ENCOUNTER 2023-08-02 12:59 | Outpatient (REF) | payer MEDICARE, OTHER, SELFPAY | END 2023-08-02 13:00 | disposition home or self-care (01) | LOC: HO.MAMMO 12:59 | PROVIDERS: PCP Internal Medicine; Visit Provider Internal Medicine | DX: Z12.31 Encounter for screening mammogram for malignant neoplasm of breast (principal) | CPT/HCPCS: 77063; 77067 ==

== ENCOUNTER → 2023-08-02 13:00 | Outpatient (BNV) | payer MEDICARE, SELFPAY | PROVIDERS: PCP Internal Medicine; Visit Provider Radiology Diagnostic Radiology | DX: Z12.31 Encounter for screening mammogram for malignant neoplasm of breast (principal) | CPT/HCPCS: 77063; 77067 ==

== ENCOUNTER 2024-07-31 09:29 | Outpatient (REF) | payer MEDICARE, OTHER, SELFPAY ==
[2024-07-31 09:58] LABS: MANUAL DIFF FLAG NO
[2024-07-31 10:52] LABS: Basophils Percent Auto 0.4 % (0-2); Eosinophils Absolute Auto 0.1 X10*3/uL (0.0-0.4); Eosinophils Percent Auto 1.2 % (0-4); Hematocrit 39.7 % (37.0-47.0); Hemoglobin 13.8 g/dl (12.0-16.0); Imm Gran Abs Auto 0.01 X10*3/uL (0.00-0.03); Imm Gran Pct Auto 0.1 % (0.0-0.4); Lymphocytes Absolute Auto 2.6 X10*3/uL (1.2-4.9); Lymphocytes Percent Auto 38.6 % (20-40); Mean Corpuscular HGB Conc 34.8 g/dl (31.0-35.0); Mean Corpuscular Hemoglobin 31.4 pg (27.0-33.0); Mean Corpuscular Volume 90.4 fL (80.0-98.0); Mean Platelet Volume 10.1 fL (9.4-12.3); Monocytes Absolute Auto 0.7 X10*3/uL (0.1-1.2); Monocytes Percent Auto 10.4 % (2-11); Neutrophils Absolute Auto 3.3 x10*3/uL (2.0-8.3); Neutrophils Percent Auto 49.3 % (45-73); Platelet Count 311 X10*3/uL (160-400); Red Blood Count 4.39 X10*6/uL (4.20-5.50); Red Cell Distribution Width 13.3 % (11.0-16.0); White Blood Count 6.7 X10*3/uL (4.8-10.8)
[2024-07-31 11:28] LABS: Alanine Aminotransferase 20 U/L (0-31); Albumin Level 4.5 g/dL (3.5-5.0); Alkaline Phosphatase 75 U/L (39-117); Anion Gap 14 (12-20); Aspartate Amino Transferase 27 U/L (5-31); Bilirubin Total 0.8 mg/dL (0.0-1.0); Blood Urea Nitrogen 12 mg/dL (9-16); Calcium 9.4 mg/dL (8.4-10.2); Carbon Dioxide 23 mmol/L (22-29); Chloride 102 mmol/L (96-108); Cholesterol 138 mg/dL (<200); Estimated Glomerular Filt Rate > 60; Glucose Random 121 mg/dL (60-115); HDL Cholesterol 66 mg/dL (>40); LDL Cholesterol Calculated 55 mg/dL (<100); Magnesium 2.1 mg/dL (1.6-2.6); Potassium 3.6 mmol/L (3.3-5.1); Sodium 135 mmol/L (135-145); Thyroid Stimulating Hormone 2.78 uIU/mL (0.32-4.0); Total Protein 7.2 g/dL (6.5-8.0); Triglycerides 89 mg/dL (<150)
== END 2024-07-31 09:30 | disposition home or self-care (01) ==
LOC: HO.LAB 09:29
PROVIDERS: PCP Internal Medicine; Visit Provider Internal Medicine
DX: F32.2 Major depressive disorder, single episode, severe without psychotic features (principal); F41.0 Panic disorder [episodic paroxysmal anxiety]; I10 Essential (primary) hypertension; M54.9 Dorsalgia, unspecified; N62 Hypertrophy of breast; R73.01 Impaired fasting glucose
CPT/HCPCS: 36415; 80053; 80061; 83735; 84443; 85025

== ENCOUNTER 2024-08-07 12:45 | Outpatient (REF) | payer MEDICARE, OTHER, SELFPAY ==
--- NOTE | ~2024-08-07 | MM_ITS ---
EXAMINATION: MM SCREENING DIGITAL BREAST TOMOSYNTHESIS, BILATERAL CLINICAL INFORMATION: Screening. Asymptomatic. COMPARISON: Mammography: Comparison is made with available priors TECHNIQUE: Digital breast mammography with tomosynthesis is performed in both the craniocaudal and mediolateral oblique views along with computer-aided detection (CAD). FINDINGS: There are scattered areas of fibroglandular density (ACR BI-RADS breast composition Category b). There are no significant masses, abnormal calcifications, or other abnormalities. MM/MM tomosynthesis screening BI IMPRESSION: No mammographic evidence of malignancy. ASSESSMENT: BI-RADS BI-RADS 1 - Negative RECOMMENDATION: Routine annual mammography screening. 1 year F/U This examination should not preclude the clinical evaluation of a suspicious palpable abnormality. This patient's information was entered into a reminder system with a target due date for their next mammogram. Electronically signed by: Kristy Marques DO 08/13/2024 05:25 PM [facility]
--- OUTSIDE RECORDS SUMMARY | 2024-08-14 13:51 | XMS_ITS | Continuity of Care Document ---
Author Organization [facility]. If a dditional information is needed, contact Health Information Management at [phone] [address] [place] [address] Phone Care Team Providers Care Recycling Crew Supervisor Name Role Phone Unavailable Unavailable Unavailable Unavailable Unavailable Unavailable Unavailable Unavailable Unavailable Problems Sore throat symptom Onset:19-Jan-2022 Lambert-Padmini Lakshmi A DO Cough Onset:19-Jan-2022 Lambert-Padmini Lakshmi A DO Allergies and Adverse Reactions No Known Allergies(Allergy) Onset: 19-Jan-2022 Medications 200 ACTUAT albuterol 0.09 MG /ACTUAT Metered Dose Inhaler Quantity:1 Lambert-Padmini Lakshmi A DO Start:19-Jan-2022 Social History Smoking Status Never smoked tobacco Recorded: 19-Jan-2022
== END 2024-08-07 12:46 | disposition home or self-care (01) ==
LOC: HO.MAMMO 12:45
PROVIDERS: Visit Provider Internal Medicine
DX: Z12.31 Encounter for screening mammogram for malignant neoplasm of breast (principal)
CPT/HCPCS: 77063; 77067

== ENCOUNTER → 2024-08-07 13:00 | Outpatient (BNV) | payer MEDICARE, MEDICAID, SELFPAY | PROVIDERS: Visit Provider Internal Medicine | DX: Z12.31 Encounter for screening mammogram for malignant neoplasm of breast (principal) | CPT/HCPCS: 77063; 77067 ==

== ENCOUNTER 2025-03-18 09:17 | Outpatient (REF) | payer MEDICARE, MEDICAID, SELFPAY ==
--- OUTSIDE RECORDS SUMMARY | 2025-03-18 09:40 | XMS_ITS | Clinical Summary ---
Author Organization [facility] ity Address [address] [place] [address] Care Team Providers Care Fermentation Scientist Name Role Phone Mary Ellen Smalls MD Primary Care Provider [phone] Medical History Medical History Date Comments Anxiety state DX:Anxiety state Depressive disorder DX:Depressiv e disorder Social History Tobacco Use Types Packs/Day Years Used Date Smoking Tobacco: Never Smokeless Tobacco: Never Alcohol Use Standard Drinks/Week Comments Yes 0 (1 standard drink = 0.6 oz pur e alcohol) Comments Unknown Sex and Gender Information Value Date Recorded Sex Assigned at Not on file Legal Sex Female 4:29 AM EST Gender Identity Not on file Sexual Orientation Not on file Obstetrics History Plan of Treatment Health Maintenance Due Date Last Done Comments DTaP,Tdap,and Td Vaccines (1 - Tdap) 1965 Pneumococcal Vaccine: 50+ Ye ars (1 of 1 - PCV) 1996 Zoster Vaccines (1 of 2) 1996 RSV Immunization Adult Patie nts (1 - 1-dose 75+ series) 2021 Depression Screening 08/08/2022 Falls Risk Assessment 08/08/2022 Hepatitis C Screening 08/08/2022 Osteoporosis Screening (Bone Density Screening) 08/08/2022 Social Influencers of Health Screening 08/08/2022 COVID-19 Vaccine ( - 2023-2 5 season) 2024 Influenza Vaccine (#1) 2025 07/07/2020 HIB Vaccines Aged Out No longer eligi ble based on patient's age to complete this topic HPV Vaccines Aged Out No longer eligi ble based on patient's age to complete this topic Hepatitis A Vaccines Aged Out No long er eligible based on patient's age to complete this topic Hepatitis B Vaccines Aged Out No long er eligible based on patient's age to complete this topic IPV Vaccines Aged Out No longer eligi ble based on patient's age to complete this topic MMR Vaccines Aged Out No longer eligi ble based on patient's age to complete this topic Meningococcal ACWY Vaccine Aged Out N o longer eligible based on patient's age to complete this topic Meningococcal B Vaccine Aged Out No l onger eligible based on patient's age to complete this topic RSV Immunization Patients Un janet 20 months Aged Out No longer eligible b ased on patient's age to complete this topic Varicella Vaccines Aged Out No longer eligible based on patient's age to complete this topic Care Teams Fermentation Scientist Relationship Specialty Start Date End Date Mary Ellen Smalls MD PCP - General Internal Medicine 01/19/17
[2025-03-18 10:00] LABS: Hemoglobin A1C 144.2852 umol/L; Total Hemoglobin (HGBA1C) 3618.0138 umol/L
[2025-03-18 10:17] LABS: Alanine Aminotransferase 17 U/L (0-31); Albumin Level 4.9 g/dL (3.5-5.0); Alkaline Phosphatase 74 U/L (39-117); Anion Gap 12 (12-20); Aspartate Amino Transferase 24 U/L (5-31); Blood Urea Nitrogen 8 mg/dL (9-16); Calcium 9.5 mg/dL (8.4-10.2); Carbon Dioxide 27 mmol/L (22-29); Chloride 102 mmol/L (96-108); Estimated Glomerular Filt Rate > 60; Potassium 4.6 mmol/L (3.3-5.1); Sodium 136 mmol/L (135-145); Total Protein 7.6 g/dL (6.5-8.0)
== END 2025-03-18 09:18 | disposition home or self-care (01) ==
LOC: HO.LAB 09:17
PROVIDERS: PCP Internal Medicine; Visit Provider Internal Medicine
DX: I10 Essential (primary) hypertension (principal); I83.11 Varicose veins of right lower extremity with inflammation; E78.00 Pure hypercholesterolemia, unspecified; R05.9 Cough, unspecified; R73.01 Impaired fasting glucose
CPT/HCPCS: 36415; 80053; 83036

== ENCOUNTER → 2025-04-18 10:00 | Outpatient (BNV) | payer MEDICARE, MEDICAID, SELFPAY | PROVIDERS: PCP Internal Medicine; Visit Provider Internal Medicine | DX: N64.4 Mastodynia (principal) | CPT/HCPCS: 76642; 77066; G0279 ==

== ENCOUNTER 2025-04-18 10:10 | Outpatient (REF) | payer MEDICARE, MEDICAID, SELFPAY ==
--- NOTE | ~2025-04-18 | US_ITS ---
EXAMINATION: MM DIAGNOSTIC DIGITAL BREAST TOMOSYNTHESIS, BILATERAL Limited right breast ultrasound. CLINICAL INFORMATION: Right breast pain starts in the right axilla and radiates towards the nipple for one to 2 months. COMPARISON: Mammography: Comparison is made with relevant prior exams. TECHNIQUE: Digital breast mammography with tomosynthesis is performed in both the craniocaudal and mediolateral oblique views along with computer-aided detection (CAD). FINDINGS: There are scattered areas of fibroglandular density (ACR BI-RADS breast composition Category b). [place] marker denoting site of right breast pain in the axilla and upper outer breast without underlying abnormal finding. There are no significant masses, abnormal calcifications, or other abnormalities. Targeted color Doppler ultrasound scanning in the right breast areas of patient's pain from 8 12:00 and in the axilla demonstrates normal fibroglandular breast tissue and axillary tissue. No sonographic abnormal finding is seen. Results are provided to the patient at time of visit by the technologist. US/US breast RT limited mamm only IMPRESSION: No mammographic or sonographic abnormal finding to account for the patient's areas of right breast pain. Recommend clinical evaluation and follow-up. ASSESSMENT: BI-RADS BI-RADS 1 - Negative RECOMMENDATION: 1 year F/U This patient's information was entered into a reminder system with a target due date for their next mammogram. Electronically signed by: Kristy Marques DO 04/18/2025 11:19 AM EDT
--- OUTSIDE RECORDS SUMMARY | 2025-04-18 10:52 | XMS_ITS | Clinical Summary ---
Author Organization [facility] ity Address [address] [place] [address] Care Team Providers Care Veterinary Pathologist Name Role Phone Mary Ellen Smalls MD Primary Care Provider Medical History Medical History Date Comments Anxiety [...] nts (1 - 1-dose 75+ series) 2021 Falls Risk Assessment 08/08/2022 Hepatitis C Screening 08/08/2022 Osteoporosis Screening (Bone Density Screening) 08/08/2022 Social Influencers of Health Screening 08/08/2022 COVID-19 Vaccine ( - 2023-2 5 season) 2024 Depression Screening 09/05/2024 Influenza Vaccine (#1) 2025 07/07/2020 HIB Vaccines [...] age to complete this topic Care Teams Veterinary Pathologist Relationship Specialty Start Date End Date Mary Ellen Smalls MD PCP - General Internal Medicine 01/19/17
== END 2025-04-18 10:11 | disposition home or self-care (01) ==
LOC: HO.MAMMO 10:10
PROVIDERS: PCP Internal Medicine; Visit Provider Internal Medicine
DX: Z12.31 Encounter for screening mammogram for malignant neoplasm of breast (principal); N64.4 Mastodynia
CPT/HCPCS: 76642; 77062; 77066